=== PATIENT | male | born 1975 | race Caucasian/White ===

== ENCOUNTER 2025-01-01 13:45 | Emergency (ER) | payer OTHER ==
[2025-01-01 14:04] VITALS: BP 122/83; PULSE 78; RESP 16; TEMP 98.2; BMI 31.7
[2025-01-01 15:08] LABS: URINE APPEARANCE CLEAR; URINE BILIRUBIN NEGATIVE (NEGATIVE); URINE COLOR YELLOW; URINE GLUCOSE (UA) NEGATIVE (NEGATIVE); URINE KETONE NEGATIVE (NEGATIVE); URINE LEUK ESTERASE NEGATIVE (NEGATIVE); URINE NITRITE NEGATIVE (NEGATIVE); URINE PROTEIN NEGATIVE (NEGATIVE); URINE UROBILINOGEN 0.2 mg/dL (0.2-1.0)
[2025-01-01] MEDS ORDERED: ACETAMINOPHEN 325 MG TABLET (FP) ONE (16:52)
[2025-01-01] MEDS: ACETAMINOPHEN 500 MG TABLET (FP) PO ONE (17:03)
[2025-01-01] MEDS: SODIUM CHLORIDE 0.9% 500 ML INFUS.BAG IV ONE (17:04)
[2025-01-01 17:12] LABS: ABSOLUTE IMMATURE GRANULOCYTES 0.03 x10^3/uL (0.0-0.031); BASOPHILS # 0.07 x10^3/uL (0.01-0.08); EOSINOPHIL % 4.8 % (0.8-7.0); EOSINOPHILS # 0.42 x10^3/uL (0.04-0.54); MCHC 31.5 g/dl (32.3-36.5); MEAN CELL VOLUME 85.9 fl (79.0-92.2); MEAN PLT VOLUME 10.9 fl (9.4-12.4); MONOCYTE # 0.97 x10^3/uL (0.30-0.82); MONOCYTE % 11.0 % (5.3-12.2); RDW 13.0 % (12.1-15.9)
[2025-01-01 17:38] LABS: CO2 27.0 mmol/L (21-32); GLUCOSE,RANDOM 93.0 mg/dL (74-106)
[2025-01-01 17:41] LABS: CREATININE 1.0 mg/dL (0.55-1.3); SGPT/ALT 46.0 U/L (13-61)
[2025-01-01 17:42] LABS: SGOT/AST 29.0 U/L (15-37)
[2025-01-01 17:43] LABS: ALK PHOS 67.0 U/L (45-117); TOT PROT 7.0 g/dl (6.4-8.2)
[2025-01-01 18:33] LABS: HCV DIAGNOSTIC IN-HOUSE W/RFLX NON-REACTIVE (NONREACTIVE); HIV INTERPRETATION NEGATIVE (NEGATIVE)
== END 2025-01-01 18:15 | disposition home or self-care (01) ==
LOC: JER 13:45
DX: M54.50 Low back pain, unspecified (principal); R10.9 Unspecified abdominal pain
CPT/HCPCS: 36415; 80053; 81003; 83690; 85025; 86803; 87086; 87389; 99283-25